=== PATIENT | female | born 1945 | race Caucasian/White ===

== ENCOUNTER 2021-07-08 13:26 | Emergency (ER) | payer MEDICARE ==
[~2021-07-08] VITALS: Ht 157.5 cm; Wt 60.4 kg
--- NOTE | 2021-07-08 13:48 | PHYS DOC ---
Adult General HPI HPI Patient is a 76-year-old female presenting for a fall. She reports she was walking by herself on the sidewalk and it was a poor sidewalk suffering her to trip and fall forward. She fell on her left anterior knee and subsequent face. She reports she suffered a nosebleed that did not stop after couple minutes with direct pressure prompting her to call daughter and . They arrived to scene and subsequently saw patient and so, she was transported to our facility for evaluation. On arrival, patient's nose stopped bleeding. She reports generalized pain of her face and left anterior knee. She denied any loss of consciousness, no prodromal symptoms prior to fall, she is not on any blood thinners Review of Systems Review of Systems Fourteen body systems of review of systems have been reviewed. See HPI for pertinent positives and negative responses, other barreto all other systems are negative, non-pertinent or non-contributory Physical Exam Physical Exam Constitutional: Pt is oriented to person, place, and time. Pt appears well-developed and well- nourished. HEENT: Head: Normocephalic, abrasion and hematoma present to right forehead TMs clear, no hemotympanum Conjunctivae and EOM are normal. Pupils are equal, round, and reactive to light. Oropharynx is clear and moist. There is significant abrasion noted to right superior forehead over eyebrow with hematoma present over right orbit OP clear, no blood, no malocclusion, dentition intact Nares clear, no nasal septal hematoma Midface stable Neck: C-spine midline nontender, no step-offs Cardiovascular: Normal rate, regular rhythm and normal heart sounds. Pulmonary/Chest: Effort normal and breath sounds normal. No respiratory distress. No wheezes. CTA bilaterally Abdominal: Soft. Bowel sounds are normal. Pt exhibits no distension. There is no tenderness. Musculoskeletal: No bony tenderness to extremities, no deformities, full ROM extremities Chest wall stable Pelvis stable and non-tender No vertebral TTP and spine without stepoffs Neurological: Pt is alert and oriented to person, place, and time. Moving all extremities willfully, able to wiggle all fingers and toes Motor and sensory function intact No saddle anesthesia Skin: Skin is warm and dry. There is significant abrasion noted to right superior forehead over eyebrow with hematoma present over right orbit Psychiatric: Behavior is appropriate for situation Current Patient Data Vital Signs Vital Signs Date Time Temp Pulse Resp B/P (MAP) Pulse Ox O2 Delivery O2 Flow Rate FiO2 07/08/21 13:50 97.8 89 16 134/91 (105) 97 Vital Signs Date Time Temp Pulse Resp B/P (MAP) Pulse Ox O2 Delivery O2 Flow Rate FiO2 07/08/21 13:50 97.8 89 16 134/91 (105) 97 EKG EKG [] Radiology/Procedures Radiology/Procedures Left knee 3 views: Reason for examination: Fell with left anterior knee pain. No acute fracture or dislocation is seen. The bone density appears be normal. No abnormal periosteal reaction is seen. There is however moderate degenerative change present with hypertrophic spurring and some narrowing of the medial joint compartment. A small joint effusion appreciated present in the superior patella bursa. IMPRESSION: Moderate degenerative changes at the left knee with narrowing of the medial joint compartment. Small joint effusion. Electronically signed by: Sharmila Watson MD (07/08/2021 2:40 PM) [id number] ////////////////////// CT HEAD AND MAXILLOFACIAL WO, CT CERVICAL SPINE WO dated 07/08/2021 2:15 PM Indication:Reason: fall with right forehead hematoma / Spl. Instructions: / History: Comparison: No comparison is available. Technique: Helical noncontrast images were performed. Sagittal and coronal reconstructions of the facial bones and cervical spine were obtained. One or more of the following individualized dose reduction techniques were utilized for this examination: 1. Automated exposure control 2. Adjustment of the mA and/or kV according to patient size 3. Use of iterative reconstruction technique Findings: CT head: There is no apparent intracranial hemorrhage or abnormal extra-axial fluid collection. No area of abnormal density is seen in the brain. The ventricles and basilar cisterns are normally positioned. Bone windows show no apparent fracture of the skull or abnormal sinus or mastoid opacification. There is a large right frontal scalp hematoma. CT FACIAL BONES: There is a large amount of metal artifact from dental prostheses at the mandible. Allowing for this, no mandibular fracture is seen. There appears to be a mildly depressed nasal bone fracture with slight buckling. The nasal septum is deviated toward the right anteriorly and toward the left posteriorly. The orbital floors appear intact. No fluid is seen in the sinuses. The middle turbinate shows some pneumatization. CT cervical spine: Alignment is normal. There is no apparent loss of vertebral body height or prevertebral soft tissue swelling. No fracture line is seen. T here is some disc narrowing at C5-6. There is no apparent destructive process. Evaluation of the soft tissue components of the canal is limited without intrathecal contrast. IMPRESSION: CT head: Scalp hematoma. No apparent intracranial abnormality. CT FACIAL BONES: Mildly depressed nasal fracture. No other facial fracture. CT cervical spine: Degenerative changes. No apparent acute abnormality. Electronically signed by: Alex Salinas Jr., MD (07/08/2021 2:49 PM) [id number] Heart Score C/O Chest Pain: No Risk Factors: Risk Factors: DM, Current or recent (<one month) smoker, HTN, HLP, family history of CAD, obesity. Risk Scores: Risk Factors: DM, Current or recent (<one month) smoker, HTN, HLP, family history of CAD, obesity. Course & Med Decision Making Course & Med Decision Making ABCs unremarkable HPI physical exam and comprehensive ER work-up nonconcerning for any emergent or surgical issues Hematoma and abrasion to right forehead without any other concerning findings. I did disclose finding of nasal fracture without any indication for antibiotics, further diagnostic work-up or need for emergent hospital transfer. ENT follow- up recommended Patient GCS 15, AAOx3 with unremarkable gait. Joint decision among all for discharge home with continued supportive care practices and PCP follow-up Dragon Disclaimer Dragon Disclaimer This electronic medical record was generated, in whole or in part, using a voice recognition dictation system. Departure Departure: Impression: Primary Impression: Fall Additional Impressions: Nasal bone fracture Hematoma Disposition: 01 HOME / SELF CARE / HOMELESS Condition: STABLE Referrals: JERROD VELASCO (PCP) Additional Instructions: You were seen for a fall and subsequent nasal bone fracture. There is no indication for any emergent or surgical issues or need for hospital transfer at present. With that said, it is imperative you follow-up with your primary care physician and discuss role of close outpatient ENT follow-up. Their information is attached to your discharge packet. Keep your abrasions on forehead clean, dry, and use Aquaphor and/or Vaseline as needed. You should use ice, NSAIDs and/or Tylenol to help with swelling and pain. Return to the ED if you develop worsening pain, numbness, tingling, weakness, fever, redness, or any other new or concerning symptoms. I recommend you follow-up with the following ears nose throat physician : Dr. Madison Engle who is located at [address] [place] [address]. Their office opens tomorrow at 8 AM. Please contact them at [phone] Problem Qualifiers MARY AL DO Jul 08, 2021 13:48
[2021-07-08 13:50] VITALS: BP 134/91
[2021-07-08] MEDS ORDERED: ACETAMINOPHEN 500 MG TABLET PO ONE (14:30)
--- NOTE | 2021-07-08 14:42 | RAD ---
Left knee 3 views: Reason for examination: Fell with left anterior knee pain. No acute fracture or dislocation is seen. The bone density appears be normal. No abnormal periosteal reaction is seen. There is however moderate degenerative change present with hypertrophic spurring an d some narrowing of the medial joint compartment. A small joint effusion appreciated present in the s uperior patella bursa. IMPRESSION: Moderate degenerative changes at the left knee with narrowing of the medial joint compartment. Small joint effusion. Electronically signed by: Sharmila Watson MD (07/08/2021 2:40 PM) [id number]
--- NOTE | 2021-07-08 14:51 | RAD ---
CT HEAD AND MAXILLOFACIAL WO, CT CERVICAL SPINE WO dated 07/08/2021 2:15 PM Indication:Reason: fall with right forehead hematoma / Spl. Instructions: / History: Comparison: No comparison is available. Technique: Helical noncontrast images were performed. Sagittal and coronal reconstructions of the fac ial bones and cervical spine were obtained. One or more of the following individualized dose reduction techniques were utilized for this examinat ion: 1. Automated exposure control 2. Adjustment of the mA and/or kV according to patient size 3. Use of iterative reconstruction technique Findings: CT head: There is no apparent intracranial hemorrhage or abnormal extra-axial fluid collection. No ar ea of abnormal density is seen in the brain. The ventricles and basilar cisterns are normally positio val. Bone windows show no apparent fracture of the skull or abnormal sinus or mastoid opacification. There is a large right frontal scalp hematoma. CT FACIAL BONES: There is a large amount of metal artifact from dental prostheses at the mandible. Al lowing for this, no mandibular fracture is seen. There appears to be a mildly depressed nasal bone fr acture with slight buckling. The nasal septum is deviated toward the right anteriorly and toward the left posteriorly. The orbital floors appear intact. No fluid is seen in the sinuses. The middle turbi thao shows some pneumatization. CT cervical spine: Alignment is normal. There is no apparent loss of vertebral body height or prevert ebral soft tissue swelling. No fracture line is seen. There is some disc narrowing at C5-6. There is no apparent destructive process. Evaluation of the soft tissue components of the canal is limited wit hout intrathecal contrast. IMPRESSION: CT head: Scalp hematoma. No apparent intracranial abnormality. CT FACIAL BONES: Mildly depressed nasal fracture. No other facial fracture. CT cervical spine: Degenerative changes. No apparent acute abnormality. Electronically signed by: Alex Salinas Jr., MD (07/08/2021 2:49 PM) [id number]
== END 2021-07-08 15:08 | disposition home or self-care (01) ==
LOC: ER 13:26
DX: S02.2XXA Fracture of nasal bones, initial encounter for closed fracture (principal); S00.83XA Contusion of other part of head, initial encounter; M25.562 Pain in left knee; W01.0XXA Fall on same level from slipping, tripping and stumbling without subsequent striking against object, initial encounter; Y93.01 Activity, walking, marching and hiking; Y92.480 Sidewalk as the place of occurrence of the external cause; Y99.8 Other external cause status
CPT/HCPCS: 70450; 70486; 72125; 73562; 99284